=== PATIENT | male | born 1995 | race Caucasian/White ===

== ENCOUNTER 2018-07-12 22:47 | Emergency (ER) | payer OTHER ==
[~2018-07-12] VITALS: Ht 185.4 cm; Wt 104.5 kg
[2018-07-13] MEDS ORDERED: KETOROLAC 30 MG/ML VIAL (J1885) IV ONE (01:00)
[2018-07-13 01:10] VITALS: BP 119/74
[2018-07-13 01:19] LABS: BASO % 0.5 % (0.0-1.0); EOS # 0.3 10^3/uL (0.0-0.50); EOS % 5.6 % (0.0-3.0); HEMATOCRIT 43.3 % (42.0-52.0); HEMOGLOBIN 14.7 g/dl (13.5-17.5); LYMPH # 2.1 10^3/uL (1.5-6.5); LYMPH % 33.7 % (24.0-44.0); MEAN CORPUSCULAR HEMOGLOBIN 30.2 pg (27.0-33.0); MEAN CORPUSCULAR HGB CONC 33.9 g/dl (32.0-36.5); MEAN CORPUSCULAR VOLUME 89.1 fl (80.0-96.0); MONO # 0.4 10^3/uL (0.0-0.8); NEUTROPHILS # 3.3 10^3/uL (1.8-7.7); PLATELET COUNT, AUTOMATED 205 10^3/uL (150-450); RED BLOOD COUNT 4.86 10^6/uL (4.30-6.10); WHITE BLOOD COUNT 6.1 10^3/uL (4.0-10.0)
[2018-07-13 01:47] LABS: BLOOD UREA NITROGEN 15 MG/DL (7-18); CALCIUM LEVEL 8.5 MG/DL (8.5-10.1); CARBON DIOXIDE LEVEL 30 MEQ/L (21-32); CHLORIDE LEVEL 107 MEQ/L (98-107); CK-MB VALUE MASS < 1.0 NG/ML (<3.6); CPK CREATINE PHOSPHOKINASE 99 U/L (39-308); CREATININE FOR GFR 0.93 MG/DL (0.70-1.30); GLOMERULAR FILTRATION RATE > 60.0 (>60); GLUCOSE, FASTING 96 MG/DL (70-100); MB/CK RELATIVE INDEX 1.01 (< OR =4); POTASSIUM SERUM 4.3 MEQ/L (3.5-5.1); SODIUM LEVEL 142 MEQ/L (136-145); TROPONIN I < 0.02 NG/ML (< 0.10)
[2018-07-13] MEDS ORDERED: NAPR-50 PO (02:36)
--- NOTE | 2018-07-13 04:15 | REP ---
Clinical: Acute chest pain . Comparison: None . Technique: PA and lateral. Findings: The mediastinum and cardiac silhouette are normal. The lung schumacher are clear and without acute consolidation, effusion, or pneumothorax. The skeletal structures are intact and normal. Impression: 1. No acute cardiopulmonary process. Electronically Signed by Perez Fleming MD 07/13/2018 04:06 A
--- NOTE | 2018-07-13 21:50 | ECGEPIP ---
Stationary ECG Study [facility] - ED Test Date: 2018-07-12 Pat Name: CHICHI GONZALEZ Department: Room: - Gender: M Manager Financial: MC : 1995 Requested By: STEWART Bob Order Number: [id number] Reading MD: Farhan Nuñez Measurements Intervals [place] Rate: 56 P: 36 OR: 160 QRS: 26 QRSD: 105 T: 29 QT: 393 QTc: 381 Interpretive Statements SINUS BRADYCARDIA WITH SINUS ARRHYTHMIA Comparison tracing not on file Electronically Signed On 07-13-2018 21:50:17 EDT by Farhan Nuñez
== END 2018-07-13 03:18 | disposition home or self-care (01) ==
LOC: M ED 22:47
DX: R07.89 Other chest pain (principal); R00.1 Bradycardia, unspecified; R00.2 Palpitations
CPT/HCPCS: 71046; 80048; 82550; 82553; 84484; 85025; 85379; 93005; 93041; 94760; 96374; 99284; J1885